=== PATIENT | female | born 1950 | race Caucasian/White ===

== ENCOUNTER → 2021-04-09 | Outpatient (CLI) | payer MEDICARE, OTHER ==
[~2021-04-09] VITALS: Ht 165.1 cm; Wt 45.2 kg
[~2021-04-09] MED LIST: ALPR0.5T8 PO; ASPI-989 PO; CALC1TAB PO; FEXO180T94 PO; FURO40 PO; MESA800T PO; MULT-1259 PO; SPIR-37 PO
[2021-04-09 11:40] VITALS: BP 103/56
== END | disposition home or self-care (01) ==
LOC: SRCNTR 10:55
PROVIDERS: ATTEND Internal Medicine Critical Care Medicine
DX: R91.8 Other nonspecific abnormal finding of lung field (principal); J44.9 Chronic obstructive pulmonary disease, unspecified; E78.5 Hyperlipidemia, unspecified; I27.21 Secondary pulmonary arterial hypertension; I82.409 Acute embolism and thrombosis of unspecified deep veins of unspecified lower extremity; R60.9 Edema, unspecified; Z88.5 Allergy status to narcotic agent; Z88.8 Allergy status to other drugs, medicaments and biological substances; Z79.82 Long term (current) use of aspirin; Z79.899 Other long term (current) drug therapy; Z95.818 Presence of other cardiac implants and grafts
CPT/HCPCS: G0463

== ENCOUNTER → 2021-07-08 | Outpatient (CLI) | payer MEDICARE, OTHER ==
[~2021-07-08] VITALS: Ht 165.1 cm; Wt 48.0 kg
[2021-07-08 14:15] VITALS: BP 121/64
== END | disposition home or self-care (01) ==
LOC: SRCNTR 11:30
PROVIDERS: ATTEND Internal Medicine Critical Care Medicine
DX: J44.9 Chronic obstructive pulmonary disease, unspecified (principal); E78.5 Hyperlipidemia, unspecified; I27.21 Secondary pulmonary arterial hypertension; I82.409 Acute embolism and thrombosis of unspecified deep veins of unspecified lower extremity; J30.89 Other allergic rhinitis; R60.9 Edema, unspecified
CPT/HCPCS: G0463

== ENCOUNTER 2024-06-08 19:25 | Inpatient (IN) | payer MEDICARE, OTHER ==
[~2024-06-08] VITALS: Ht 175.3 cm; Wt 43.2 kg
[2024-06-08 02:45] VITALS: BP 99/49; PULSE 95; RESP 20; TEMP 98.7; O2SAT 95
[~2024-06-08 19:25] MED LIST changes: +ALPR-707 PO; -ALPR0.5T8 PO; -FURO40 PO; +FURO40TA6 PO
[2024-06-08 20:39] LABS: BASOPHILS % (AUTO) 0.1 % (0.0-2.0); EOSINOPHILS % (AUTO) 0.1 % (1.0-6.0); HEMATOCRIT 35.5 % (36-46); HEMOGLOBIN 11.2 g/dL (12.0-16.0); LYMPHOCYTES # (AUTO) 0.3 K/uL (1.0-4.8); LYMPHOCYTES % (AUTO) 2.7 % (22.0-44.0); MEAN CORPUSCULAR HEMOGLOBIN 31.3 pg (26.0-34.0); MEAN CORPUSCULAR HGB CONC 31.6 G/dL (31.0-37.0); MEAN CORPUSCULAR VOLUME 99 fL (80-100); MONOCYTES # (AUTO) 0.3 K/uL (0.1-1.0); NEUTROPHILS # (AUTO) 10.6 K/uL (1.8-7.7); PLATELET COUNT (AUTO) 193 K/uL (150-450); RED BLOOD CELL COUNT(AUTO) 3.58 MIL/uL (4.00-5.20); RED CELL DISTRIBUTION WIDTH 14.3 % (11.5-14.5); WHITE BLOOD COUNT (AUTO) 11.3 K/uL (4.5-11.0)
[2024-06-08 20:44] LABS: ANION GAP 3 mmol/L (8-16); CALCIUM, TOTAL 8.3 mg/dL (8.8-10.5); CARBON DIOXIDE 38 mmol/L (22-29); CHLORIDE 99 mmol/L (98-107); CREATININE 0.52 mg/dL (0.60-1.30); GLOMERULAR FILTR. RATE CALC > 60 mL/min (>60); GLUCOSE,RANDOM 129 mg/dL (70-110); SODIUM SERUM 140 mmol/L (136-145); UREA NITROGEN, BLOOD 10 mg/dL (7-18)
[2024-06-08 20:46] LABS: COVID AG,FIA SOURCE NASAL SWAB
[2024-06-08 20:47] LABS: NEUTROPHILS % (AUTO) 94.1 % (40.0-70.0)
[2024-06-08 20:52] LABS: TROPONIN I-HIGH SENSITIVITY 9 ng/L (<51)
[2024-06-08 20:56] LABS: B-TYPE NATRIURETIC PEPTIDE 38 pg/mL (0-100)
[2024-06-08] MEDS ORDERED: POTASSIUM CHL 10 MEQ/WATER 50 ML IV PRN ×2 (21:00)
[2024-06-08] MEDS ORDERED: ONDANSETRON HCL 4 MG/2 ML VIAL IVP PRN (21:00)
[2024-06-08] MEDS ORDERED: BISACODYL 10 MG RECTAL RECTAL SUPPOSITORY PR PRN (21:00)
[2024-06-08] MEDS ORDERED: POTASSIUM CHLORIDE 20 MEQ ER TABLET PO PRN (21:00)
[2024-06-08] MEDS ORDERED: DEXTROSE 50%-WATER 25 GM/50 ML SYRINGE IVP PRN (21:00)
[2024-06-08] MEDS: DOCUSATE SODIUM 100 MG CAPSULE PO SCH (21:00)
[2024-06-08 21:02] LABS: INFLUENZA TYPE A NEGATIVE FOR TYPE A (NEGATIVE); INFLUENZA TYPE B NEGATIVE FOR TYPE B (NEGATIVE)
[2024-06-08 21:09] LABS: SARS-COV2 (COVID) ANTIGEN,FIA Positive (Negative)
[2024-06-08] MEDS ORDERED: LORazepam 2 MG/ML VIAL IVP PRN (21:15)
[2024-06-08] MEDS ORDERED: ALBUTEROL SULFATE 2.5 MG/0.5 ML NEB SOLUTION NEB PRN (21:15)
[2024-06-08] MEDS ORDERED: BENZONATATE 100 MG CAPSULE PO PRN (21:15)
[2024-06-08 21:29] LABS: ABG BASE EXCESS 11.7 mmol/L (-2.0-3.0); ABG CARBOXYHEMOGLOBIN 0.3 % (0.5-1.5); ABG METHEMOGLOBIN 1.3 % (0.0-1.5); ABG OXYGEN CONTENT 17.1 mL/dL (15.0-23.0); ABG OXYGEN SATURATION 99.7 % (94.0-98.0); ABG OXYHEMOGLOBIN 98.1 % (94.0-98.0); ABG PCO2 76 mmHg (32.0-45.0); ABG PH 7.314 (7.350-7.450); ABG TOTAL HEMOGLOBIN 11.8 G/dL (12.0-16.0); SOURCE, BLOOD GAS ARTERIAL; TEMPERATURE, FAHRENHEIT, BG 98.3 FAHREN (96.0-98.6)
[2024-06-08] MEDS: ALBUTEROL SULFATE 2.5 MG/0.5 ML NEB SOLUTION NEB ONE (21:30)
[2024-06-08] MEDS: IPRATROPIUM BROMIDE 0.5 MG/2.5 ML NEB SOLUTION NEB ONE (21:30)
[2024-06-08 21:43] LABS: ABG A-A DIFF O2 303.8 mmHg (10-20.0); ALLEN TEST, BLOOD GAS Positive; O2 DEVICE,BLOOD GAS NONREBREATHER (ROOM AIR); PO2, ARTERIAL BG 333.5 mmHg (83.0-108.0); SITE, BLOOD GAS LFT RADIAL
[2024-06-08] MEDS: DEXAMETHASONE SOD PHOS 10 MG/ML VIAL IVP SCH (21:53)
[2024-06-08] MEDS: AZITHROMYCIN 500 MG/NS 250 ML IV SCH (21:55)
[2024-06-08] MEDS: TOCILIZUMAB IV ONE (21:56)
[2024-06-08] MEDS: SODIUM CHLORIDE 0.9% IV ONE (21:56)
[2024-06-08] MEDS: REMDESIVIR 200 MG in SODIUM CHLORIDE 0.9% 250 ML IV ONE (21:56)
[2024-06-08 23:45] VITALS: PULSE 109; RESP 25; O2SAT 93
[2024-06-08] MEDS: POTASSIUM CHL IV ONE (23:57)
[2024-06-08] MEDS: NS IV ONE (23:57)
[2024-06-09] VITALS (10 sets, daily range): BP systolic 89–103; BP diastolic 46–59; PULSE 75–110; RESP 17–22; TEMP 97.7–98.7; O2SAT 88–100
[2024-06-09] MEDS: HEPARIN SODIUM,PORCINE 5,000 UNITS/ML VIAL SQ SCH (00:40)
[2024-06-09 05:46] LABS: GLUCOMETER DEV NAME(LOC) 5S.1C; GLUCOSE,POINT OF CARE 137 MG/DL (70-110)
[2024-06-09] MEDS: FAMOTIDINE 20 MG TABLET PO SCH (08:57)
[2024-06-09] MEDS: SODIUM CHLORIDE 0.9% 1,000 ML IV ONE ×2 (09:46→21:13)
[2024-06-09 13:20] LABS: ANION GAP 4 mmol/L (8-16); CALCIUM, TOTAL 8.4 mg/dL (8.8-10.5); CARBON DIOXIDE 38 mmol/L (22-29); CHLORIDE 100 mmol/L (98-107); CREATININE 0.42 mg/dL (0.60-1.30); GLOMERULAR FILTR. RATE CALC > 60 mL/min (>60); GLUCOSE,RANDOM 134 mg/dL (70-110); POTASSIUM 3.4 mmol/L (3.5-5.1); SODIUM SERUM 142 mmol/L (136-145); UREA NITROGEN, BLOOD 17 mg/dL (7-18)
[2024-06-09 16:53] LABS: C.DIFF GDH ANTIGEN, Stool Positive (Negative)
[2024-06-09 16:56] LABS: C.DIFF TOXINS A&B, Stool Positive (Negative)
[2024-06-09 17:21] LABS: GLUCOMETER DEV NAME(LOC) 5S.1C; GLUCOSE,POINT OF CARE 121 MG/DL (70-110)
[2024-06-09] MEDS: INSULIN LISPRO 100 UNITS/ML SQ PRN (17:41)
[2024-06-09] MEDS: MetroNIDAZOLE 500 MG TABLET PO SCH (21:11)
[2024-06-09] MEDS: POTASSIUM CHLORIDE 20 MEQ ER TABLET PO PRN (21:11)
[2024-06-09] MEDS: REMDESIVIR 100 MG in SODIUM CHLORIDE 0.9% 250 ML IV SCH (21:12)
[2024-06-09 21:51] LABS: GLUCOMETER DEV NAME(LOC) 5S.1C; GLUCOSE,POINT OF CARE 159 MG/DL (70-110)
[2024-06-10 00:06] VITALS: BP 81/38; PULSE 74; RESP 16; TEMP 98; O2SAT 97
[2024-06-10 00:55] LABS: GLUCOMETER DEV NAME(LOC) 5S.2D; GLUCOSE,POINT OF CARE 150 MG/DL (70-110)
[2024-06-10 01:51] LABS: GLUCOMETER DEV NAME(LOC) 5S.1C; GLUCOSE,POINT OF CARE 128 MG/DL (70-110)
[2024-06-10 03:29] VITALS: BP 102/52; PULSE 83; RESP 19; TEMP 97.8; O2SAT 97
[2024-06-10 07:52] LABS: ALANINE AMINOTRANSFERASE 18 U/L (12-78); ALBUMIN 1.8 g/dL (3.4-5.0); ALKALINE PHOSPHATASE 73 U/L (46-116); ANION GAP 4 mmol/L (8-16); ASPARTATE AMINOTRANSFERASE 32 U/L (15-37); BILIRUBIN,TOTAL 0.2 mg/dL (0.1-1.0); CALCIUM, TOTAL 8.3 mg/dL (8.8-10.5); CARBON DIOXIDE 32 mmol/L (22-29); CHLORIDE 106 mmol/L (98-107); CREATININE 0.24 mg/dL (0.60-1.30); GLOMERULAR FILTR. RATE CALC > 60 mL/min (>60); GLUCOSE,RANDOM 130 mg/dL (70-110); SODIUM SERUM 142 mmol/L (136-145); TOTAL PROTEIN, SERUM 5.2 g/dL (6.4-8.2); UREA NITROGEN, BLOOD 13 mg/dL (7-18)
[2024-06-10 07:59] VITALS: BP 94/49; PULSE 78; RESP 18; TEMP 97.4; O2SAT 97
[2024-06-10 08:15] LABS: GLUCOMETER DEV NAME(LOC) 5S.1C; GLUCOSE,POINT OF CARE 130 MG/DL (70-110)
[2024-06-10 08:16] LABS: GLUCOMETER DEV NAME(LOC) 5S.1C; GLUCOSE,POINT OF CARE 123 MG/DL (70-110)
[2024-06-10 12:00] VITALS: BP 101/47; PULSE 83; RESP 18; TEMP 98; O2SAT 95
[2024-06-10 14:11] LABS: GLUCOMETER DEV NAME(LOC) 5S.1C; GLUCOSE,POINT OF CARE 122 MG/DL (70-110)
[2024-06-10 16:00] VITALS: BP 97/52; PULSE 83; RESP 18; TEMP 97.9; O2SAT 96
[2024-06-10 20:00] VITALS: BP 112/67; PULSE 81; RESP 17; TEMP 98.3; O2SAT 95
[2024-06-10 20:30] LABS: GLUCOMETER DEV NAME(LOC) 5S.2D; GLUCOSE,POINT OF CARE 138 MG/DL (70-110)
[2024-06-10] MEDS ORDERED: SODIUM CHLORIDE 0.9% 500 ML IV ONE (21:28)
[2024-06-11] VITALS: BP 102/51; PULSE 77; RESP 19; TEMP 98.1; O2SAT 95
[2024-06-11 04:00] VITALS: BP 129/77; PULSE 79; RESP 18; TEMP 98.5; O2SAT 96
[2024-06-11 07:03] LABS: ALANINE AMINOTRANSFERASE 22 U/L (12-78); ALBUMIN 2.1 g/dL (3.4-5.0); ALKALINE PHOSPHATASE 86 U/L (46-116); ANION GAP 3 mmol/L (8-16); ASPARTATE AMINOTRANSFERASE 39 U/L (15-37); BILIRUBIN,TOTAL 0.3 mg/dL (0.1-1.0); CALCIUM, TOTAL 8.5 mg/dL (8.8-10.5); CARBON DIOXIDE 32 mmol/L (22-29); CHLORIDE 104 mmol/L (98-107); CREATININE 0.41 mg/dL (0.60-1.30); GLOMERULAR FILTR. RATE CALC > 60 mL/min (>60); GLUCOSE,RANDOM 130 mg/dL (70-110); POTASSIUM 3.5 mmol/L (3.5-5.1); SODIUM SERUM 139 mmol/L (136-145); TOTAL PROTEIN, SERUM 5.3 g/dL (6.4-8.2); UREA NITROGEN, BLOOD 11 mg/dL (7-18)
[2024-06-11 09:00] VITALS: BP 105/79; PULSE 83; RESP 18; TEMP 97.6; O2SAT 96
[2024-06-11 11:31] LABS: GLUCOMETER DEV NAME(LOC) 5S.2D; GLUCOSE,POINT OF CARE 162 MG/DL (70-110)
[2024-06-11 12:00] VITALS: BP 107/80; PULSE 81; RESP 18; TEMP 97.7; O2SAT 97
[2024-06-11 14:26] LABS: BASOPHILS % (AUTO) 0.1 % (0.0-2.0); EOSINOPHILS % (AUTO) 0 % (1.0-6.0); HEMATOCRIT 31.4 % (36-46); HEMOGLOBIN 10.1 g/dL (12.0-16.0); LYMPHOCYTES # (AUTO) 0.2 K/uL (1.0-4.8); LYMPHOCYTES % (AUTO) 11.6 % (22.0-44.0); MEAN CORPUSCULAR HEMOGLOBIN 31.4 pg (26.0-34.0); MEAN CORPUSCULAR HGB CONC 32.1 G/dL (31.0-37.0); MEAN CORPUSCULAR VOLUME 98 fL (80-100); MONOCYTES # (AUTO) 0.1 K/uL (0.1-1.0); MONOCYTES % (AUTO) 4.9 % (2.0-9.0); NEUTROPHILS # (AUTO) 1.8 K/uL (1.8-7.7); NEUTROPHILS % (AUTO) 83.4 % (40.0-70.0); PLATELET COUNT (AUTO) 186 K/uL (150-450); RED BLOOD CELL COUNT(AUTO) 3.21 MIL/uL (4.00-5.20); RED CELL DISTRIBUTION WIDTH 14.3 % (11.5-14.5); WHITE BLOOD COUNT (AUTO) 2.1 K/uL (4.5-11.0)
[2024-06-11 14:39] LABS: ANION GAP 3 mmol/L (8-16); CALCIUM, TOTAL 8.3 mg/dL (8.8-10.5); CARBON DIOXIDE 34 mmol/L (22-29); CHLORIDE 104 mmol/L (98-107); CREATININE 0.38 mg/dL (0.60-1.30); GLOMERULAR FILTR. RATE CALC > 60 mL/min (>60); GLUCOSE,RANDOM 146 mg/dL (70-110); POTASSIUM 3.3 mmol/L (3.5-5.1); SODIUM SERUM 141 mmol/L (136-145); UREA NITROGEN, BLOOD 10 mg/dL (7-18)
[2024-06-11 14:44] LABS: ALANINE AMINOTRANSFERASE 21 U/L (12-78); ALKALINE PHOSPHATASE 81 U/L (46-116); ASPARTATE AMINOTRANSFERASE 31 U/L (15-37); BILIRUBIN,TOTAL 0.2 mg/dL (0.1-1.0)
[2024-06-11] MEDS ORDERED: CLON0.5T4 PO (15:10)
[2024-06-11] MEDS ORDERED: BUME1TAB6 PO (15:10)
[2024-06-11] MEDS ORDERED: POTA-206 PO (15:10)
[2024-06-11] MEDS ORDERED: ATOR40TA71 PO (15:10)
[2024-06-11 17:00] VITALS: BP 108/83; PULSE 83; RESP 18; TEMP 97.6; O2SAT 95
[2024-06-11 20:00] VITALS: BP 110/52; PULSE 77; RESP 18; TEMP 98; O2SAT 95
[2024-06-11 20:46] LABS: GLUCOMETER DEV NAME(LOC) 5S.2D; GLUCOSE,POINT OF CARE 130 MG/DL (70-110)
[2024-06-11 20:46] LABS: GLUCOMETER DEV NAME(LOC) 5S.2D; GLUCOSE,POINT OF CARE 156 MG/DL (70-110)
[2024-06-11] MEDS: ETHYL ALCOHOL 62% ANTISEPTIC NASAL SANITIZER 0.6 ML AMPUL NASAL SCH (20:46)
[2024-06-12] VITALS: BP 107/56; PULSE 81; RESP 17; TEMP 98.1; O2SAT 94
[2024-06-12 01:01] LABS: GLUCOMETER DEV NAME(LOC) 5S.1C; GLUCOSE,POINT OF CARE 134 MG/DL (70-110)
[2024-06-12 04:00] VITALS: BP 107/57; PULSE 80; RESP 18; TEMP 98.1; O2SAT 95
[2024-06-12 06:16] LABS: GLUCOMETER DEV NAME(LOC) 5S.1C; GLUCOSE,POINT OF CARE 105 MG/DL (70-110)
[2024-06-12 08:00] VITALS: BP 120/67; PULSE 91; RESP 20; TEMP 97.8; O2SAT 95
[2024-06-12 12:02] VITALS: BP 110/60; PULSE 95; RESP 18; TEMP 98; O2SAT 100
[2024-06-12 13:01] LABS: ALANINE AMINOTRANSFERASE 27 U/L (12-78); ALKALINE PHOSPHATASE 90 U/L (46-116); ANION GAP 0 mmol/L (8-16); ASPARTATE AMINOTRANSFERASE 35 U/L (15-37); BILIRUBIN,TOTAL 0.2 mg/dL (0.1-1.0); CALCIUM, TOTAL 8.4 mg/dL (8.8-10.5); CARBON DIOXIDE 37 mmol/L (22-29); CHLORIDE 103 mmol/L (98-107); CREATININE 0.34 mg/dL (0.60-1.30); GLOMERULAR FILTR. RATE CALC > 60 mL/min (>60); GLUCOSE,RANDOM 131 mg/dL (70-110); SODIUM SERUM 140 mmol/L (136-145); TOTAL PROTEIN, SERUM 5.2 g/dL (6.4-8.2); UREA NITROGEN, BLOOD 12 mg/dL (7-18)
[2024-06-12 18:06] LABS: GLUCOMETER DEV NAME(LOC) 5S.1C; GLUCOSE,POINT OF CARE 131 MG/DL (70-110)
[2024-06-12] MEDS: AZITHROMYCIN 500 MG TABLET PO ONE (18:33)
[2024-06-12 19:35] VITALS: BP 104/56; PULSE 81; RESP 20; TEMP 97.9; O2SAT 96
[2024-06-12 19:46] LABS: GLUCOMETER DEV NAME(LOC) 5S.1C; GLUCOSE,POINT OF CARE 144 MG/DL (70-110)
[2024-06-12] MEDS ORDERED: BUME1TAB50 PO (22:45)
[2024-06-12] MEDS ORDERED: CLON-592 PO (22:46)
[2024-06-12] MEDS ORDERED: POTA-189 PO (22:48)
[2024-06-12] MEDS ORDERED: METR-172 PO (23:01)
[2024-06-12] MEDS ORDERED: ALBU2.5V39 NEB (23:03)
[2024-06-12] MEDS ORDERED: BENZ-227 PO (23:04)
[2024-06-12] MEDS ORDERED: BISA-151 PO (23:05)
[2024-06-12] MEDS ORDERED: INSU100V SQ (23:06)
== END 2024-06-12 20:30 | DRG 177 ==
LOC: EMS 19:25 → EDH 22:24 → 5S 06-09 01:55
PROVIDERS: ADMIT Internal Medicine; ATTEND Internal Medicine
PROC: XW033E5 Introduction of Remdesivir Anti-infective into Peripheral Vein, Percutaneous Approach, New Technology Group 5 (ICD-10-PCS; principal; 2024-06-08)
PROC: XW033H5 Introduction of Tocilizumab into Peripheral Vein, Percutaneous Approach, New Technology Group 5 (ICD-10-PCS; 2024-06-08)
PROC: 5A09357 Assistance with Respiratory Ventilation, Less than 24 Consecutive Hours, Continuous Positive Airway Pressure (ICD-10-PCS; 2024-06-08)
DX: U07.1 COVID-19 (principal); E43 Unspecified severe protein-calorie malnutrition; J12.82 Pneumonia due to coronavirus disease 2019; J96.21 Acute and chronic respiratory failure with hypoxia; J96.22 Acute and chronic respiratory failure with hypercapnia; J44.1 Chronic obstructive pulmonary disease with (acute) exacerbation; R64 Cachexia; J44.0 Chronic obstructive pulmonary disease with (acute) lower respiratory infection; Z68.1 Body mass index [BMI] 19.9 or less, adult; J47.0 Bronchiectasis with acute lower respiratory infection; E87.6 Hypokalemia; J43.9 Emphysema, unspecified; R91.1 Solitary pulmonary nodule; K52.9 Noninfective gastroenteritis and colitis, unspecified; I27.20 Pulmonary hypertension, unspecified; D64.9 Anemia, unspecified; E78.00 Pure hypercholesterolemia, unspecified; K44.9 Diaphragmatic hernia without obstruction or gangrene; Z88.5 Allergy status to narcotic agent; Z87.891 Personal history of nicotine dependence; Z79.82 Long term (current) use of aspirin; Z79.899 Other long term (current) drug therapy
CPT/HCPCS: 36600; 71045; 71250; 80048; 80053; 82805; 82962; 83605; 83880; 84145; 84484; 85025; 87040; 87081; 87324; 87449; 87481; 87804; 93005; 94660; 97162; 99285; G0378; J0456; J1100; J1644; J2405; J3480; J7030; J7040; J7050; 36415-L1; 36415-TC